=== PATIENT | female | born 1990 | race Caucasian/White ===

== ENCOUNTER 2018-06-17 16:34 | Emergency (ER) | payer SELFPAY ==
[~2018-06-17] VITALS: Ht 157.5 cm; Wt 85.7 kg
--- OUTSIDE RECORDS SUMMARY | 2018-06-17 16:37 | XMS REPORT | CCD ---
Author Author Auto Generated Organization [facility] Address Unknown Phone Unavailable Care Team Providers Care Mammography Tech Name Role Phone Cele Santiago CP Allergies, Adverse Reactions, Alerts Substance Reaction Status NKDA Active Results BEDSIDE GLUCOSE TESTING Most recent to oldest [Reference Range]: 1 Gluc POC Lifscn [65-110 mg/dL] 71 mg/dL 1 (06/04/2011 17:45:00) Comment1 Notify RN/MD *NA* (06/04/2011 17:45:00) 1Interpretive Data: Upper Reportable Limit: 200 mg/dL. BLOOD BANK RESULTS Most recent to oldest [Reference Range]: 1 ABO/Rh A POS *Unknown* (06/04/2011 16:10:00) Antibody Scrn Negative (06/04/2011 16:10:00) CHEMISTRY Most recent to oldest [Reference Range]: 1 U Alcohol [Negative] Negative *NA* (06/04/2011 17:25:00) U Methadone Scr [Negative] Negative *NA* (06/04/2011 17:25:00) U Propoxyph Scr [Negative] Negative *NA* (06/04/2011 17:25:00) U Amph Scr [Negative] Negative *NA* (06/04/2011 17:25:00) U Francisca Scr [Negative] Negative *NA* (06/04/2011 17:25:00) U Benzodia Scr [Negative] Negative *NA* (06/04/2011 17:25:00) U Cocaine Scr [Negative] Negative *NA* (06/04/2011 17:25:00) U Opiate Scr [Negative] Negative *NA* (06/04/2011 17:25:00) U Phencyc Scr [Negative] Negative *NA* (06/04/2011 17:25:00) U Cannab Scr [Negative] Negative *NA* (06/04/2011 17:25:00) UDS Note See Note 2 (06/04/2011 17:25:00) 2Interpretive Data: Drugs reported as positive have not been confirmed by a second method and should be used for medical purposes only. To orderconfirmation, contact laboratory. note: Below are cut-off concentrations for all urine drugs of abuse performed in the laboratory. Some drugs listed in the table may not be included in this panel.Description Cut-off concentration Amphetamine 1000 ng/mLBarbiturates 200 ng/mLBenzodiazepines 300 ng/mLCocaine metabolites 300 ng/mLOpiates 300 ng/mLPhencyclidine 25 ng/mLPropoxyphene 300 ng/mLMarijuana metabolites 50 ng/mLMethadone 300 ng/mLUrine alcohol 20 mg/dL HEMATOLOGY Most recent to oldest [Reference Range]: 1 WBC [3.7-10.4 K/CMM] 9.9 K/CMM (06/04/2011 17:30:00) RBC [4.20-5.40 M/CMM] 3.95 M/CMM *LOW* (06/04/2011 17:30:00) Hgb [12.0-16.0 g/dL] 9.6 g/dL *LOW* (06/04/2011:30:00) Hct [36.0-48.0 %] 29.9 % *LOW* (06/04/2011 17:30:00) MCV [81.0-99.0 fL] 75.6 fL *LOW* (06/04/2011 17:30:00) MCH [27.0-31.0 pg] 24.4 pg *LOW* (06/04/2011:30:00) MCHC [32.0-36.0 g/dL] 32.3 g/dL (06/04/2011 17:30:00) RDW [11.5-14.5 %] 17.0 % *HI* (06/04/2011 17:30:00) Platelet [133-450 K/CMM] 219 K/CMM (06/04/2011 17:30:00) MPV [7.4-10.4 fL] 9.3 fL (06/04/2011 17:30:00) Segs [45.0-75.0 %] 75.9 % *HI* (06/04/2011 17:30:00) Lymphocytes [20.0-40.0 %] 18.9 % *LOW* (06/04/2011 17:30:00) Monocytes [2.0-12.0 %] 4.4 % (06/04/2011 17:30:00) Eosinophils [0.0-4.0 %] 0.2 % (06/04/2011 17:30:00) Basophils [0.0-1.0 %] 0.6 % (06/04/2011 17:30:00) Segs-Bands # [1.5-8.1 K/CMM] 7.5 K/CMM (06/04/2011 17:30:00) Lymphocytes # [1.0-5.5 K/CMM] 1.9 K/CMM (06/04/2011 17:30:00) Monocytes # [0.0-0.8 K/CMM] 0.4 K/CMM (06/04/2011 17:30:00) Eosinophils # [0.0-0.5 K/CMM] 0.0 K/CMM (06/04/2011 17:30:00) Basophils # [0.0-0.2 K/CMM] 0.1 K/CMM (06/04/2011 17:30:00) Microcyte [None Seen] 1+ *ABN* (06/04/2011 17:30:00) IMMUNOLOGY Most recent to oldest [Reference Range]: 1 RPR [Non Reactive] Non Reactive (06/04/2011 17:30:00) HIV 1/2 Ab (LD) [Negative] Negative *NA* (06/04/2011 17:30:00) Rubella IgG 27.2 IU/mL 3 *NA* (06/04/2011 17:30:00) Source Chlam endocervix *NA* (06/04/2011 17:30:00) Chlam PCR [Negative] Positive *ABN* (06/04/2011 17:30:00) Source Dayne Endocervix *NA* (06/04/2011 17:30:00) Gonorrhea PCR [Negative] Negative (06/04/2011 17:30:00) Hep Bs Ag [Negative] Negative *NA* (06/04/2011 17:30:00) 3Interpretive Data: Reference Range: Immune >=10 IU/mL Microbiology Reports PROCEDURE:Culture: Genital Strep Screen STATUS: In Progress BODY SITE: Vagina COLLECTED DATE/TIME: 06/04/2011 18:00:00 SOURCE: Vaginal/Rectal FREE TEXT SOURCE: [facility] SWAB PRELIMINARY REPORTS Preliminary Report Culture In Progress
--- OUTSIDE RECORDS SUMMARY | 2018-06-17 16:37 | XMS REPORT | CCD ---
Author Author Auto Generated Organization [facility] Address Unknown Phone Unavailable Care Team Providers Care Transmission Mechanic Name Role Phone Agusto Haines CP Allergies, Adverse Reactions, Alerts Substance Reaction Status NKDA Active Vital Signs Most recent to oldest [Reference Range]: 1 Height 157.48 cm (04/23/2011 00:54:00) Weight 64.091 kg (04/23/2011 00:54:00)
--- OUTSIDE RECORDS SUMMARY | 2018-06-17 16:37 | XMS REPORT ---
Author Author [facility] Address Unknown Phone Unavailable Care Team Providers Care Hydrologic Engineer Name Role Phone Unavailable Unavailable Payers Payer Name Policy Type Policy Number Effective Date Expiration Date Problems This patient has no known problems. Allergies, Adverse Reactions, Alerts Allergy Name Allergy Type Status Severity Reaction(s) Onset Date Inactive Date Treating Clinician Comments No Known Allergies DA Active U 2018-01-02 00:00:00 No Known Allergies DA Active U 2017-01-01 00:00:00 Medications This patient has no known medications.
--- OUTSIDE RECORDS SUMMARY | 2018-06-17 16:37 | XMS REPORT | Summary of Care ---
Author Author [facility] Organization [facility] Address Unknown Phone Unavailable Encounter MINI Cano(JEANNINE) [id number] Date(s): 08/06/16 - 08/06/16 [facility] [address] [place] [address]- Discharge Diagnosis: Chest wall pain Discharge Disposition: Home or Self Care Attending Physician: Suman Cortes MD Vital Signs Most recent to 1 2 oldest [Reference Range]: Temperature Oral 98.4 DegF 98.6 DegF [96.4-99.1 DegF] (08/06/16 8:45 AM) (08/06/16 6:30 AM) Blood Pressure 120/81 mmHg 121/78 mmHg [90-140/60-90 mmHg] (08/06/16 8:45 AM) (08/06/16 6:30 AM) Respiratory Rate 16 BRMIN 20 BRMIN [14-20 BRMIN] (08/06/16 8:45 AM) (08/06/16 6:30 AM) Peripheral Pulse 72 bpm 66 bpm Rate [60-100 bpm] (08/06/16 8:45 AM) (08/06/16 6:30 AM) Weight 80 kg (08/06/16 6:30 AM) Problem List No data available for this section Allergies, Adverse Reactions, Alerts Substance Reaction Severity Status NKDA Active Medications ketOROLAC 30 mg/mL injectable solution 60 mg, Route: IM, ONCE, Dosing Weight 80, kg, Start date: 08/06/16 8:16:00 CDT, Stop date: 08/06/16 8:16:00 CDT Start Date: 08/06/16 Stop Date: 08/06/16 Status: Completed Motrin 800 mg oral tablet 800 mg=1 tab, PO, Q8H, PRN Pain, Take with food, X 14 day, # 42 tab, 0 Refill(s) Start Date: 08/06/16 Stop Date: 08/20/16 Status: Ordered Results No data available for this section Immunizations No data available for this section Procedures No data available for this section Social History Social History Type Response Smoking Status Never smoker; Exposure to Tobacco Smoke None; Cigarette Smoking Last 365 Days No; Reg Smoking Cessation Counseling No Assessment and Plan No data available for this section
--- OUTSIDE RECORDS SUMMARY | 2018-06-17 16:37 | XMS REPORT | CCD ---
Author Author Auto Generated Organization [facility] Address Unknown Phone Unavailable Care Team Providers Care Scaffold Erector Name Role Phone PCP, None CP Unavailable ChartServer, Login CP Unavailable Malathi Multani CP Kayla Burns CP Wanda Hernandez CP [phone] Allergies, Adverse Reactions, Alerts Substance Reaction Status NKDA ?? Active Vital Signs Most recent to oldest [Reference Range]: 1 Height 157.48 cm (02/24/2011 07:37:00) ?? Weight 62.727 kg (02/24/2011 07:37:00) ??
--- OUTSIDE RECORDS SUMMARY | 2018-06-17 16:37 | XMS REPORT | Summary of Care ---
Author Author [facility] Organization [facility] Address Unknown Phone Unavailable Encounter HQ Jerome(FIN) [id number] Date(s): 10/11/17 - 10/11/17 [facility] [address] [place] [address]- Encounter Diagnosis Epigastric pain (Discharge Diagnosis) - 10/11/17 Discharge Disposition: Home or Self Care Attending Physician: Roslyn Laura MD Vital Signs Most recent to 1 2 oldest [Reference Range]: Height 157.48 cm (10/11/17 2:00 PM) Temperature Oral 98.3 DegF 98.7 DegF [96.4-99.1 DegF] (10/11/17 4:22 PM) (10/11/17 2:00 PM) Blood Pressure 104/68 mmHg 152/86 mmHg [90-140/60-90 mmHg] (10/11/17 4:22 PM) *HI* (10/11/17 2:00 PM) Respiratory Rate 20 BRMIN 18 BRMIN [14-20 BRMIN] (10/11/17 4:22 PM) (10/11/17 2:00 PM) Peripheral Pulse 71 bpm 83 bpm Rate [60-100 bpm] (10/11/17 4:22 PM) (10/11/17 2:00 PM) Weight 78.636 kg (10/11/17 2:00 PM) Body Mass Index 31.71 m2 (10/11/17 2:00 PM) Problem List No data available for this section Allergies, Adverse Reactions, Alerts Substance Reaction Severity Status NKDA Active Medications GI cocktail 30 mL, Route: PO, Dosing Weight 78.636, kg, ONCE, STAT, Start date: 10/11/17 15: 59:00 CDT, Stop date: 10/11/17 15:59:00 CDT Start Date: 10/11/17 Stop Date: 10/11/17 Status: Completed Pepcid 20 mg, Route: PO, ONCE, Dosing Weight 78.636, kg, Priority: STAT, Start date: 15:59:00 CDT, Stop date: 10/11/17 15:59:00 CDT Start Date: 10/11/17 Stop Date: 10/11/17 Status: Completed Pepcid 20 mg oral tablet 20 mg=1 tab, PO, BID, # 14 tab, 0 Refill(s) Start Date: 10/11/17 Stop Date: 10/18/17 Status: Ordered Results ELECTROLYTES Most recent to 1 oldest [Reference Range]: Sodium Lvl [135-145 139 mEq/L mEq/L] (10/11/17 2:11 PM) Potassium Lvl 4.0 mEq/L [3.5-5.1 mEq/L] (10/11/17 2:11 PM) Chloride Lvl [95-109 105 mEq/L mEq/L] (10/11/17 2:11 PM) CO2 [24-32 mEq/L] 26 mEq/L (10/11/17 2:11 PM) AGAP [10.0-20.0 12.0 mEq/L mEq/L] (10/11/17 2:11 PM) CHEM PANEL Most recent to 1 oldest [Reference Range]: Creatinine Lvl 0.97 mg/dL [0.50-1.40 mg/dL] (10/11/17 2:11 PM) eGFR 81 mL/min/1.73m2 1 *NA* (10/11/17 2:11 PM) BUN [7-22 mg/dL] 14 mg/dL (10/11/17 2:11 PM) B/C Ratio [6-25] 14 (10/11/17 2:11 PM) Glucose Lvl [70-99 94 mg/dL mg/dL] (10/11/17 2:11 PM) Total Protein 8.0 g/dL [6.4-8.4 g/dL] (10/11/17 2:11 PM) Albumin Lvl [3.5-5.0 3.8 g/dL g/dL] (10/11/17 2:11 PM) Globulin [2.7-4.2 4.2 g/dL g/dL] (10/11/17 2:11 PM) A/G Ratio [0.7-1.6] 0.9 (10/11/17 2:11 PM) Calcium Lvl 8.7 mg/dL [8.5-10.5 mg/dL] (10/11/17 2:11 PM) ALT [0-65 unit/L] 58 unit/L (10/11/17 2:11 PM) AST [0-37 unit/L] 34 unit/L (10/11/17 2:11 PM) Alk Phos [39-136 81 unit/L unit/L] (10/11/17 2:11 PM) Bili Total [0.2-1.3 0.2 mg/dL mg/dL] (10/11/17 2:11 PM) Lipase Lvl [73-393 134 unit/L unit/L] (10/11/17 2:11 PM) 1Result Comment: The eGFR is calculated using the CKD-EPI formula. In most young, healthy individuals the eGFR will be >90 mL/min/1.73m2. The eGFR declines with age. An eGFR of 60-89 may be normal in some populations, particularly the elderly, for whom the CKD-EPI formula has not been extensively validated. Use of the eGFR is not recommended in the following populations: Individuals with unstable creatinine concentrations, including patients and those with serious co-morbid conditions. Patients with extremes in muscle mass or diet. The data above are obtained from the National Kidney Disease Education Program ( NKDEP) which additionally recommends that when the eGFR is used in patients with extremes of body mass index for purposes of drug dosing, the eGFR should be mul tiplied by the estimated BMI. ENDOCRINOLOGY Most recent to 1 oldest [Reference Range]: S Preg [Negative] Negative *NA* (10/11/17 2:11 PM) URINE AND STOOL Most recent to 1 oldest [Reference Range]: UA Turbidity [Clear] Slight *ABN* (10/11/17 2:11 PM) UA Color [Yellow] Yellow *NA* (10/11/17 2:11 PM) UA pH [5.0-8.0] 7.0 (10/11/17 2:11 PM) UA Spec Grav 1.020 [<=1.030] (10/11/17 2:11 PM) UA Glucose [Negative Negative mg/dL mg/dL] *NA* (10/11/17 2:11 PM) UA Blood [Negative] Negative (10/11/17 2:11 PM) UA Ketones Negative *NA* (10/11/17 2:11 PM) UA Protein [Negative Negative mg/dL mg/dL] (10/11/17 2:11 PM) UA Urobilinogen 2.0 mg/dL [0.1-1.0 mg/dL] *HI* (10/11/17 2:11 PM) UA Bili [Negative] Negative *NA* (10/11/17 2:11 PM) UA Leuk Est Negative [Negative] (10/11/17 2:11 PM) UA Nitrite Negative [Negative] (10/11/17 2:11 PM) UA WBC [0-5 /HPF] 4 /HPF (10/11/17 2:11 PM) UA RBC [0-2 /HPF] 1 /HPF (10/11/17 2:11 PM) UA Bacteria [None Occasional /HPF Seen /HPF] *NA* (10/11/17 2:11 PM) UA Sq Epi [Few /LPF] Occasional /LPF *NA* (10/11/17 2:11 PM) UA Mucus [None Seen Few /LPF /LPF] *NA* (10/11/17 2:11 PM) HEMATOLOGY Most recent to 1 oldest [Reference Range]: WBC [3.7-10.4 K/CMM] 6.1 K/CMM (10/11/17 2:11 PM) RBC [4.20-5.40 4.66 M/CMM M/CMM] (10/11/17 2:11 PM) Hgb [12.0-16.0 g/dL] 14.0 g/dL (10/11/17 2:11 PM) Hct [36.0-48.0 %] 41.2 % (10/11/17 2:11 PM) MCV [80.0-98.0 fL] 88.5 fL (10/11/17 2:11 PM) MCH [27.0-31.0 pg] 30.1 pg (10/11/17 2:11 PM) MCHC [32.0-36.0 33.9 g/dL g/dL] (10/11/17 2:11 PM) RDW [11.5-14.5 %] 13.5 % (10/11/17 2:11 PM) MPV [7.4-10.4 fL] 8.4 fL (10/11/17 2:11 PM) Platelet [133-450 264 K/CMM K/CMM] (10/11/17 2:11 PM) Segs [45.0-75.0 %] 58.6 % (10/11/17 2:11 PM) Lymphocytes 32.4 % [20.0-40.0 %] (10/11/17 2:11 PM) Monocytes [2.0-12.0 7.5 % %] (10/11/17 2:11 PM) Eosinophils [0.0-4.0 0.8 % %] (10/11/17 2:11 PM) Basophils [0.0-1.0 0.7 % %] (10/11/17 2:11 PM) Segs-Bands # 3.6 K/CMM [1.5-8.1 K/CMM] (10/11/17 2:11 PM) Lymphocytes # 2.0 K/CMM [1.0-5.5 K/CMM] (10/11/17 2:11 PM) Monocytes # [0.0-0.8 0.5 K/CMM K/CMM] (10/11/17 2:11 PM) Immunizations No data available for this section Procedures No data available for this section Social History Social History Type Response Smoking Status Never smoker; Exposure to Tobacco Smoke None; Cigarette Smoking Last 365 Days No; Reg Smoking Cessation Counseling No entered on: 10/11/17 Assessment and Plan No data available for this section
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
[2018-06-17 18:39] LABS: CLARITY,URINE SL CLOUDY (CLEAR); COLOR,URINE STRAW (YELLOW); LEUKOCYTE ESTERASE ,URINE TRACE (NEGATIVE); NITRITE,URINE NEGATIVE (NEGATIVE); PROTEIN,URINE DIPSTICK 2+ (NEGATIVE)
[2018-06-17 18:40] LABS: BILIRUBIN,URINE NEGATIVE (NEGATIVE); KETONES,URINE NEGATIVE (NEGATIVE); URINE UROBILINOGEN 0.2 mg/dL (0.2 - 1)
[2018-06-17 18:50] LABS: WBC,URINE (MAN) 0-5 /HPF (0-5)
[2018-06-17 18:51] LABS: RBC,URINE 21-50 /HPF (0-5)
--- NOTE | 2018-06-17 19:40 | Diagnostic Imaging Report ---
Frontal view of the chest - 2 images HISTORY: Chest pain COMPARISON: None available. DISCUSSION: Portable technique, limits sensitivity of the exam. Tubes/Lines: None Lungs and pleura: Low lung volumes result in bibasilar vascular crowding, accentuation of the pulmonary interstitial markings, central pulmonary vasculature, and the cardiac silhouette. Allowing for these limitations, the findings are as follows: No evidence of a consolidative pneumonia or pulmonary alveolar edema. No definite pleural effusion or pneumothorax is identified. Heart and mediastinum: The cardiomediastinal silhouette appears unremarkable. Bones and soft tissues: Appear unremarkable, given this limited exam. IMPRESSION: No acute radiographic abnormality. Signed by: Dr. Jose Posey D.O., M.M.M. on 06/17/2018 7:36 PM
[2018-06-17 20:19] LABS: BASOPHILS % 0.2 % (0.0-1.0); EOSINOPHILS % 0.2 % (0.0-6.0); HEMATOCRIT 43.2 % (34.2-44.1); HEMOGLOBIN 14.5 g/dL (12.0-16.0); LYMPHOCYTES # (AUTO) 1.8 (1.0-3.2); LYMPHOCYTES % 14.6 % (18.0-39.1); MEAN CORPUSCULAR HEMOGLOBIN 29.6 pg (28-32); MEAN CORPUSCULAR HGB CONC 33.6 g/dL (31-35); MEAN CORPUSCULAR VOLUME 88.2 fL (81-99); MONOCYTES # (AUTO) 0.6 (0.2-0.8); MONOCYTES % 4.7 % (4.4-11.3); NEUTROPHILS # (AUTO) 9.9 (2.1-6.9); NEUTROPHILS % 80.1 % (38.7-80.0); PLATELET COUNT 287 x10e3/uL (140-360); RED CELL DISTRIBUTION WIDTH 12.5 % (11.7-14.4)
[2018-06-17 20:41] LABS: ALANINE AMINOTRANSFERASE 28 IU/L (0-55); ALBUMIN 3.7 g/dL (3.5-5.0); ALBUMIN/GLOBULIN RATIO 0.9 (0.8-2.0); ALKALINE PHOSPHATASE 84 IU/L (40-150); ANION GAP 13.8 mmol/L (8-16); BLOOD UREA NITROGEN 7 mg/dL (7-26); BUN/CREATININE RATIO 9 (6-25); CALCIUM 9.3 mg/dL (8.4-10.2); CARBON DIOXIDE 23 mmol/L (22-29); CHLORIDE 105 mmol/L (98-107); CREATINE KINASE 136 IU/L (29-168); CREATININE, SERUM 0.74 mg/dL (0.57-1.11); EST GLOMERULAR FILTRATION RATE > 60 ML/MIN (60-); GLUCOSE 86 mg/dL (74-118); POTASSIUM 3.8 mmol/L (3.5-5.1); SODIUM 138 mmol/L (136-145)
[2018-06-17 20:43] LABS: AMYLASE 76 U/L (25-125); LIPASE 19 U/L (8-78)
[2018-06-17 22:30] VITALS: BP 123/83
== END 2018-06-17 22:36 | disposition home or self-care (01) ==
LOC: ER 16:34
DX: M54.2 Cervicalgia (principal); M54.6 Pain in thoracic spine; X50.0XXA Overexertion from strenuous movement or load, initial encounter
CPT/HCPCS: 36415; 71045; 80053; 81001; 82150; 82550; 82553; 83690; 84484; 85025; 93005; 99284

== ENCOUNTER 2018-08-04 05:28 | Emergency (ER) | payer SELFPAY ==
[~2018-08-04] VITALS: Ht 157.5 cm; Wt 85.7 kg
--- OUTSIDE RECORDS SUMMARY | 2018-08-04 05:31 | XMS REPORT | Continuity of Care Document ---
Author Author [facility] Interface Address Unknown Phone Unavailable Problems Problem Status Onset Date Classification Date Reported Comments Source Threatened 01/03/2018 07/19/2018 [facility] Threatened miscarriage 12/30/2017 07/19/2018 [facility] LOWER ABDOMINAL PAIN AND SOME VAGINAL BL Active 12/30/2017 [facility] Epigastric pain 10/11/2017 10/14/2017 [facility] BACK PAIN Active 10/11/2017 [facility] BACK PAIN, CHEST Active 08/10/2017 [facility] Discharge Diagnosis: Chest wall pain 08/06/2016 08/09/2016 [facility] CHEST PAIN Active 08/06/2016 [facility] COUGH Active 08/06/2016 [facility] LABOR Active 06/04/2011 [facility] UPPER ABDOMINAL PAIN. Active 04/23/2011 [facility] UPPER ABDOMINAL PAIN Active 04/23/2011 [facility] ABDOMINAL PAIN Active 02/24/2011 [facility] 16 WEEKS -FELL Active 01/24/2011 [facility] Less than 8 weeks gestation of 07/19/2018 [facility] Medications Medication Details Route Status Patient Instructions Ordering Provider Order Date Source Acetaminophen 975 mg, Route: PO, Drug form: TAB, ONCE, Dosing Weight 84.682, kg, Priority: STAT, Start date: 12/30/17 11:22:00 CDT, Stop date: 12/30/17 11:22:00 CDT Inactive 12/30/2017 [facility] Sodium Chloride 0.9% (Bolus) IV 1,000 mL, Infuse Over: 1 hr, Route: IV, ONCE, Priority: STAT, Dosing Weight 84.682 kg, Start date: 12/30/17 11:03:00 CDT, Stop date: 12/30/17 11:03:00 CDT Inactive 12/30/2017 [facility] Saline Flush 0.9% 10 mL, Route: IVP, Drug Form: INJ, Dosing Weight 84.682, kg, PRN, PRN Line Flush, Start date: 12/30/17 10:42:00 CDT, Duration: 30 day, Stop date: 01/29/18 10:41:00 CDTNotes: Same as: BD Posiflush Sterile Inactive 12/30/2017 [facility] Famotidine 20 MG Oral Tablet [Pepcid] 20 mg=1 tab, PO, BID, # 14 tab, 0 Refill(s) Active 10/11/2017 [facility] GI cocktail 30 mL, Route: PO, Dosing Weight 78.636, kg, ONCE, STAT, Start date: 10/11/17 15:59:00 CDT, Stop date: 10/11/17 15:59:00 CDT Inactive 10/11/2017 [facility] Pepcid 20 mg, Route: PO, ONCE, Dosing Weight 78.636, kg, Priority: STAT, Start date: 10/11/17 15:59:00 CDT, Stop date: 10/11/17 15:59:00 CDT Inactive 10/11/2017 [facility] ketOROLAC 30 mg/mL injectable solution 60 mg, Route: IM, ONCE, Dosing Weight 80, kg, Start date: 08/06/16 8:16:00 CDT, Stop date: 08/06/16 8:16:00 CDT Inactive 08/06/2016 [facility] Motrin 800 mg oral tablet 800 mg=1 tab, PO, Q8H, PRN Pain, Take with food, X 14 day, # 42 tab, 0 Refill(s) Active 08/06/2016 [facility] Allergies, Adverse Reactions, Alerts Substance Category Reaction Severity Reaction type Status Date Reported Comments Source Immunizations Immunization Date Given Site Status Last Updated Comments Source Results Order Name Results Value Reference Range Date Interpretation Comments Source BLOOD BANK RESULTS ABO/Rh A POS 12/30/2017 [facility] CHEM PANEL Globulin 4.2 g/dL 2.7 - 4.2 12/30/2017 [facility] CHEM PANEL AST 19 unit/L 0 - 37 12/30/2017 [facility] CHEM PANEL Bili Total 0.3 mg/dL 0.2 - 1.3 12/30/2017 [facility] CHEM PANEL A/G Ratio 0.8 0.7 - 1.6 12/30/2017 [facility] CHEM PANEL ALT 32 unit/L 0 - 65 12/30/2017 [facility] CHEM PANEL Total Protein 7.7 g/dL 6.4 - 8.4 12/30/2017 [facility] CHEM PANEL Albumin Lvl 3.5 g/dL 3.5 - 5.0 12/30/2017 [facility] CHEM PANEL Bili Indirect Unable to Calculate 0.0 - 1.0 12/30/2017 [facility] CHEM PANEL Alk Phos 68 unit/L 39 - 136 12/30/2017 [facility] CHEM PANEL Bili Direct null 0.0 - 0.3 12/30/2017 [facility] CHEM PANEL eGFR 122 mL/min/1.73m2 12/30/2017 Result Comment: The eGFR is calculated using [...] should be multiplied by the estimated BMI. [facility] CHEM PANEL Calcium Lvl 8.6 mg/dL 8.5 - 10.5 12/30/2017 [facility] CHEM PANEL CO2 27 meq/L 24 - 32 12/30/2017 [facility] Creatinine Lvl 0.66 mg/dL 0.50 - 1.40 12/30/2017 [facility] CHEM PANEL BUN 8 mg/dL 7 - 22 12/30/2017 [facility] CHEM PANEL Glucose Lvl 94 mg/dL 70 - 99 12/30/2017 [facility] CHEM PANEL Chloride Lvl 106 meq/L 95 - 109 12/30/2017 [facility] CHEM PANEL Potassium Lvl 3.9 meq/L 3.5 - 5.1 12/30/2017 [facility] CHEM PANEL Sodium Lvl 140 meq/L 135 - 145 12/30/2017 [facility] CHEM PANEL AGAP 10.9 meq/L 10.0 - 20.0 12/30/2017 [facility] [place]INOLOGY [place] 13726 mIU/mL 12/30/2017 [facility] HEMATOLOGY MCV 89.9 fL 80.0 - 98.0 12/30/2017 [facility] HEMATOLOGY RDW 13.5 % 11.5 - 14.5 12/30/2017 [facility] HEMATOLOGY Platelet 235 K/CMM 133 - 450 12/30/2017 [facility] HEMATOLOGY MCHC 34.1 g/dL 32.0 - 36.0 12/30/2017 [facility] HEMATOLOGY MCH 30.7 pg 27.0 - 31.0 12/30/2017 [facility] HEMATOLOGY MPV 7.9 fL 7.4 - 10.4 12/30/2017 [facility] HEMATOLOGY WBC 5.2 K/CMM 3.7 - 10.4 12/30/2017 [facility] HEMATOLOGY RBC 4.56 M/CMM 4.20 - 5.40 12/30/2017 [facility] HEMATOLOGY Hgb 14.0 g/dL 12.0 - 16.0 12/30/2017 [facility] HEMATOLOGY Hct 41.0 % 36.0 - 48.0 12/30/2017 [facility] HEMATOLOGY Basophils 0.5 % 0.0 - 1.0 12/30/2017 [facility] HEMATOLOGY Neutrophils # 3.0 K/CMM 1.5 - 8.1 12/30/2017 [facility] HEMATOLOGY Eosinophils 1.7 % 0.0 - 4.0 12/30/2017 [facility] HEMATOLOGY Lymphocytes # 1.7 K/CMM 1.0 - 5.5 12/30/2017 [facility] HEMATOLOGY Monocytes # 0.4 K/CMM 0.0 - 0.8 12/30/2017 [facility] HEMATOLOGY Eosinophils # 0.1 K/CMM 0.0 - 0.5 12/30/2017 [facility] HEMATOLOGY Lymphocytes 33.0 % 20.0 - 40.0 12/30/2017 [facility] HEMATOLOGY Monocytes 7.0 % 2.0 - 12.0 12/30/2017 [facility] HEMATOLOGY Segs 57.8 % 45.0 - 75.0 12/30/2017 [facility] URINE AND STOOL UA Ketones Negative 12/30/2017 [facility] URINE AND STOOL UA Urobilinogen <=1.0 mg/dL 0.1 - 1.0 12/30/2017 [facility] URINE AND STOOL UA Mucus Few /LPF None Seen /LPF 12/30/2017 [facility] URINE AND STOOL UA WBC 1 /HPF 0 - 5 12/30/2017 [facility] URINE AND STOOL UA Bacteria Occasional /HPF None Seen /HPF 12/30/2017 [facility] URINE AND STOOL UA RBC null 0 - 2 12/30/2017 [facility] URINE AND STOOL UA Turbidity Clear (12/30/17 10:58 AM) Clear 12/30/2017 [facility] URINE AND STOOL UA Spec Grav 1.013 <=1.030 12/30/2017 [facility] URINE AND STOOL UA Color Light Yellow *NA* (12/30/17 10:58 AM) Yellow 12/30/2017 [facility] URINE AND STOOL UA Leuk Est Negative (12/30/17 10:58 AM) Negative 12/30/2017 [facility] URINE AND STOOL UA Sq Epi Occasional /LPF Few /LPF 12/30/2017 [facility] URINE AND STOOL UA Nitrite Negative (12/30/17 10:58 AM) Negative 12/30/2017 [facility] URINE AND STOOL UA Bili Negative *NA* (12/30/17 10:58 AM) Negative 12/30/2017 [facility] URINE AND STOOL UA Blood Negative (12/30/17 10:58 AM) Negative 12/30/2017 [facility] URINE AND STOOL UA Glucose Negative mg/dL Negative mg/dL 12/30/2017 [facility] URINE AND STOOL UA pH 7.0 5.0 - 8.0 12/30/2017 [facility] URINE AND STOOL UA Protein Negative mg/dL Negative mg/dL 12/30/2017 [facility] Preg < 14wks sing gest w transvag/Dop [...] not identified. 2. Large subchorionic hemorrhage. SL: [id number] 12/30/2017 - - Read by: Kaden Acevedo MD Dictated Date/time: 12/30/17 12:26 Electronically Signed by: Kaden Acevedo MD 12/30/17 12:33 FINAL REPORT [facility] CHEM PANEL Lipase Lvl 134 unit/L 73 - 393 10/11/2017 [facility] CHEM PANEL eGFR 81 mL/min/1.73m2 10/11/2017 Result [...] should be multiplied by the estimated BMI. [facility] CHEM PANEL Sodium Lvl 139 meq/L 135 - 145 10/11/2017 [facility] CHEM PANEL Creatinine Lvl 0.97 mg/dL 0.50 - 1.40 10/11/2017 [facility] CHEM PANEL BUN 14 mg/dL 7 - 22 10/11/2017 [facility] CHEM PANEL Glucose Lvl 94 mg/dL 70 - 99 10/11/2017 [facility] CHEM PANEL CO2 26 meq/L 24 - 32 10/11/2017 [facility] CHEM PANEL Bili Total 0.2 mg/dL 0.2 - 1.3 10/11/2017 [facility] CHEM PANEL Alk Phos 81 unit/L 39 - 136 10/11/2017 [facility] CHEM PANEL ALT 58 unit/L 0 - 65 10/11/2017 [facility] CHEM PANEL Albumin Lvl 3.8 g/dL 3.5 - 5.0 10/11/2017 [facility] CHEM PANEL AST 34 unit/L 0 - 37 10/11/2017 [facility] CHEM PANEL Total Protein 8.0 g/dL 6.4 - 8.4 10/11/2017 [facility] CHEM PANEL Calcium Lvl 8.7 mg/dL 8.5 - 10.5 10/11/2017 [facility] CHEM PANEL Chloride Lvl 105 meq/L 95 - 109 10/11/2017 [facility] CHEM PANEL Potassium Lvl 4.0 meq/L 3.5 - 5.1 10/11/2017 [facility] CHEM PANEL A/G Ratio 0.9 0.7 - 1.6 10/11/2017 [facility] CHEM PANEL Globulin 4.2 g/dL 2.7 - 4.2 10/11/2017 [facility] CHEM PANEL B/C Ratio 14 6 - 25 10/11/2017 [facility] CHEM PANEL AGAP 12.0 meq/L 10.0 - 20.0 10/11/2017 [facility] ENDOCRINOLOGY S Preg Negative *NA* (10/11/17 2:11 PM) Negative 10/11/2017 [facility] HEMATOLOGY Lymphocytes # 2.0 K/CMM 1.0 - 5.5 10/11/2017 [facility] HEMATOLOGY Monocytes # 0.5 K/CMM 0.0 - 0.8 10/11/2017 [facility] HEMATOLOGY Eosinophils 0.8 % 0.0 - 4.0 10/11/2017 [facility] HEMATOLOGY Lymphocytes 32.4 % 20.0 - 40.0 10/11/2017 [facility] HEMATOLOGY Segs-Bands # 3.6 K/CMM 1.5 - 8.1 10/11/2017 [facility] HEMATOLOGY Basophils 0.7 % 0.0 - 1.0 10/11/2017 [facility] HEMATOLOGY Monocytes 7.5 % 2.0 - 12.0 10/11/2017 [facility] HEMATOLOGY Segs 58.6 % 45.0 - 75.0 10/11/2017 [facility] HEMATOLOGY Platelet 264 K/CMM 133 - 450 10/11/2017 [facility] HEMATOLOGY MPV 8.4 fL 7.4 - 10.4 10/11/2017 [facility] HEMATOLOGY MCH 30.1 pg 27.0 - 31.0 10/11/2017 [facility] HEMATOLOGY MCV 88.5 fL 80.0 - 98.0 10/11/2017 [facility] HEMATOLOGY RDW 13.5 % 11.5 - 14.5 10/11/2017 [facility] HEMATOLOGY MCHC 33.9 g/dL 32.0 - 36.0 10/11/2017 [facility] HEMATOLOGY WBC 6.1 K/CMM 3.7 - 10.4 10/11/2017 [facility] HEMATOLOGY RBC 4.66 M/CMM 4.20 - 5.40 10/11/2017 [facility] HEMATOLOGY Hct 41.2 % 36.0 - 48.0 10/11/2017 [facility] HEMATOLOGY Hgb 14.0 g/dL 12.0 - 16.0 10/11/2017 [facility] URINE AND STOOL UA Ketones Negative 10/11/2017 [facility] URINE AND STOOL UA RBC 1 /HPF 0 - 2 10/11/2017 [facility] URINE AND STOOL UA WBC 4 /HPF 0 - 5 10/11/2017 [facility] URINE AND STOOL UA Sq Epi Occasional /LPF Few /LPF 10/11/2017 [facility] URINE AND STOOL UA Leuk Est Negative (10/11/17 2:11 PM) Negative 10/11/2017 [facility] URINE AND STOOL UA Glucose Negative mg/dL Negative mg/dL 10/11/2017 [facility] URINE AND STOOL UA Bacteria Occasional /HPF None Seen /HPF 10/11/2017 [facility] URINE AND STOOL UA Mucus Few /LPF None Seen /LPF 10/11/2017 [facility] URINE AND STOOL UA Nitrite Negative (10/11/17 2:11 PM) Negative 10/11/2017 [facility] URINE AND STOOL UA Urobilinogen 2.0 mg/dL 0.1 - 1.0 10/11/2017 [facility] URINE AND STOOL UA Blood Negative (10/11/17 2:11 PM) Negative 10/11/2017 [facility] URINE AND STOOL UA Bili Negative *NA* (10/11/17 2:11 PM) Negative 10/11/2017 [facility] URINE AND STOOL UA Protein Negative mg/dL Negative mg/dL 10/11/2017 [facility] URINE AND STOOL UA Spec Grav 1.020 <=1.030 10/11/2017 [facility] URINE AND STOOL UA pH 7.0 5.0 - 8.0 10/11/2017 [facility] URINE AND STOOL UA Turbidity Slight *ABN* (10/11/17 2:11 PM) Clear 10/11/2017 [facility] URINE AND STOOL UA Color Yellow *NA* (10/11/17 2:11 PM) Yellow 10/11/2017 [facility] Gallbladder US Gallbladder US Exam: Gallbladder Ultrasound [...] Jacobo Coles MD 08/10/17 04:11 FINAL REPORT [facility] Chest 1view DX Chest 1view DX Chest [...] No acute abnormality of the chest. SL: [id number] 08/06/2016 - - Read by: Netta Whiting MD Dictated Date/time: 08/06/16 09:27 Electronically Signed by: Netta Whiting MD 08/06/16 09:27 FINAL REPORT [facility] Microbiology Culture: Genital Strep Screen 06/05/2011 [facility] BEDSIDE GLUCOSE TESTING Gluc POC Lifscn 71 mg/dL 65 - 110 06/04/2011 Normal 1Interpretive Data: Upper Reportable Limit: 200 mg/dL. [facility] BEDSIDE GLUCOSE TESTING Comment1 Notify RN/MD 06/04/2011 NA [facility] HEMATOLOGY Microcyte 1+ *ABN* (06/04/2011 17:30:00) None Seen 06/04/2011 ABN [facility] HEMATOLOGY Eosinophils # 0.0 K/CMM 0.0 - 0.5 06/04/2011 [facility] HEMATOLOGY Monocytes # 0.4 K/CMM 0.0 - 0.8 06/04/2011 [facility] HEMATOLOGY Basophils # 0.1 K/CMM 0.0 - 0.2 06/04/2011 [facility] HEMATOLOGY Segs 75.9 % 45.0 - 75.0 06/04/2011 [facility] HEMATOLOGY Basophils 0.6 % 0.0 - 1.0 06/04/2011 [facility] HEMATOLOGY Eosinophils 0.2 % 0.0 - 4.0 06/04/2011 [facility] HEMATOLOGY Segs-Bands # 7.5 K/CMM 1.5 - 8.1 06/04/2011 [facility] HEMATOLOGY Lymphocytes # 1.9 K/CMM 1.0 - 5.5 06/04/2011 [facility] HEMATOLOGY Monocytes 4.4 % 2.0 - 12.0 06/04/2011 [facility] HEMATOLOGY Lymphocytes 18.9 % 20.0 - 40.0 06/04/2011 [facility] HEMATOLOGY Platelet 219 K/CMM 133 - 450 06/04/2011 [facility] HEMATOLOGY MPV 9.3 fL 7.4 - 10.4 06/04/2011 [facility] HEMATOLOGY MCV 75.6 fL 81.0 - 99.0 06/04/2011 [facility] HEMATOLOGY Hct 29.9 % 36.0 - 48.0 06/04/2011 [facility] HEMATOLOGY MCHC 32.3 g/dL 32.0 - 36.0 06/04/2011 [facility] HEMATOLOGY MCH 24.4 pg 27.0 - 31.0 06/04/2011 [facility] HEMATOLOGY RDW 17.0 % 11.5 - 14.5 06/04/2011 [facility] HEMATOLOGY Hgb 9.6 g/dL 12.0 - 16.0 06/04/2011 LOW [facility] HEMATOLOGY RBC 3.95 M/CMM 4.20 - 5.40 06/04/2011 LOW [facility] HEMATOLOGY WBC 9.9 K/CMM 3.7 - 10.4 06/04/2011 Normal [facility] IMMUNOLOGY Rubella IgG 27.2 [iU]/mL 06/04/2011 NA 3Interpretive Data: Reference Range: Immune >=10 IU/mL [facility] IMMUNOLOGY Source Chlam endocervix 06/04/2011 NA [facility] IMMUNOLOGY Chlam PCR Positive *ABN* (06/04/2011 17:30:00) Negative 06/04/2011 ABN [facility] IMMUNOLOGY Gonorrhea PCR Negative (06/04/2011 17:30:00) Negative 06/04/2011 Normal [facility] IMMUNOLOGY Source [place] Endocervix 06/04/2011 NA [facility] IMMUNOLOGY Hep Bs Ag Negative *NA* (06/04/2011 17:30:00) Negative 06/04/2011 [facility] IMMUNOLOGY HIV 1/2 Ab (LD) Negative *NA* (06/04/2011 17:30:00) Negative 06/04/2011 NA [facility] IMMUNOLOGY RPR Non Reactive (06/04/2011 17:30:00) Non Reactive 06/04/2011 Normal [facility] CHEMISTRY U Amph Scr Negative *NA* (06/04/2011 17:25:00) Negative 06/04/2011 [facility] CHEMISTRY UDS Note See Note 2 (06/04/2011 [...] 50 ng/mLMethadone 300 ng/mLUrine alcohol 20 mg/dL [facility] CHEMISTRY U Phencyc Scr Negative *NA* (06/04/2011 17:25:00) Negative 06/04/2011 NA [facility] CHEMISTRY U Propoxyph Scr Negative *NA* (06/04/2011 17:25:00) Negative 06/04/2011 NA [facility] CHEMISTRY U Methadone Scr Negative *NA* (06/04/2011 17:25:00) Negative 06/04/2011 NA [facility] CHEMISTRY U Alcohol Negative *NA* (06/04/2011 17:25:00) Negative 06/04/2011 NA [facility] CHEMISTRY U Francisca Scr Negative *NA* (06/04/2011 17:25:00) Negative 06/04/2011 NA [facility] CHEMISTRY U Benzodia Scr Negative *NA* (06/04/2011 17:25:00) Negative 06/04/2011 NA [facility] CHEMISTRY U Opiate Scr Negative *NA* (06/04/2011 17:25:00) Negative 06/04/2011 NA [facility] CHEMISTRY U Cannab Scr Negative *NA* (06/04/2011 17:25:00) Negative 06/04/2011 [facility] CHEMISTRY U Cocaine Scr Negative *NA* (06/04/2011 17:25:00) Negative 06/04/2011 NA [facility] BLOOD BANK RESULTS ABO/Rh A POS 06/04/2011 Unknown [facility] BLOOD BANK RESULTS Antibody Scrn Negative (06/04/2011 16:10:00) 06/04/2011 Normal [facility] URINALYSIS UA Sq Epi Rare /LPF (01/24/2011 20:25:00) ?? >Few 01/25/2011 Normal [facility] URINALYSIS UA WBC 0-2 /HPF (01/24/2011 20:25:00) ?? >None Seen 01/25/2011 Normal [facility] URINALYSIS UA RBC None Seen (01/24/2011 20:25:00) ?? >0 - 2 01/25/2011 Normal [facility] URINALYSIS UA Bacteria None Seen (01/24/2011 20:25:00) ?? >None Seen 01/25/2011 Normal [facility] URINALYSIS UA Mucus None Seen (01/24/2011 20:25:00) ?? >None Seen 01/25/2011 Normal [facility] URINALYSIS Micro? Performed (01/24/2011 20:25:00) ?? 01/25/2011 Normal [facility] URINALYSIS UA Blood Negative (01/24/2011 20:25:00) ?? >Negative 01/25/2011 Normal [facility] URINALYSIS UA Urobilinogen 0.2 EU/dL 0.1 - 1.0 01/25/2011 Normal [facility] URINALYSIS UA Leuk Est Small *ABN* (01/24/2011 20:25:00) ?? >Negative 01/25/2011 ABN [facility] URINALYSIS UA Turbidity Clear (01/24/2011 20:25:00) ?? >Clear 01/25/2011 Normal [facility] URINALYSIS UA Color Yellow *NA* (01/24/2011 20:25:00) ?? >Yellow 01/25/2011 NA [facility] URINALYSIS UA Bili Negative *NA* (01/24/2011 20:25:00) ?? >Negative 01/25/2011 NA [facility] URINALYSIS UA Nitrite Negative (01/24/2011 20:25:00) ?? >Negative 01/25/2011 Normal [facility] URINALYSIS UA pH 6.5 5.0 - 8.0 01/25/2011 Normal [facility] URINALYSIS UA Spec Grav 1.01 <<=1.030 01/25/2011 Normal [facility] URINALYSIS UA Glucose Negative (01/24/2011 20:25:00) ?? >Negative 01/25/2011 Normal [facility] URINALYSIS UA Protein Negative (01/24/2011 20:25:00) ?? >Negative 01/25/2011 Normal [facility] URINALYSIS UA Ketones Negative *NA* (01/24/2011 20:25:00) ?? >Negative 01/25/2011 NA [facility] Vital Signs Vital Sign Value Date Comments Source Heart Rate 72 12/30/2017 [facility] Respitory Rate 20 12/30/2017 [facility] Temperature Oral (F) 98 F 12/30/2017 [facility] Systolic (mm Hg) 117 12/30/2017 [facility] Diastolic (mm Hg) 68 12/30/2017 [facility] BMI Calculated 34.15 12/30/2017 [facility] Height 157.48 cm 12/30/2017 [facility] Weight 84.682 12/30/2017 [facility] Systolic (mm Hg) 115 12/30/2017 [facility] Diastolic (mm Hg) 73 12/30/2017 [facility] Heart Rate 77 12/30/2017 [facility] Temperature Oral (F) 98.1 F 12/30/2017 [facility] Respitory Rate 18 12/30/2017 [facility] Respitory Rate 20 10/11/2017 [facility] Heart [...] [facility] Systolic (mm Hg) 120 08/06/2016 [facility] Diastolic (mm Hg) 81 08/06/2016 [...] [facility] Diastolic (mm Hg) 59.0 01/25/2011 [facility] Temperature Oral (F) 97.9 F 01/25/2011 [facility] [...] 01/25/2011 [facility] Weight 66.818 01/25/2011 [facility] Encounters Location Location Details Encounter Type Encounter Number Reason For Visit Attending Provider ADM Date DC Date Status Source [facility] [id number] BENY CORCORANOBODA 01/24/2011 01/24/2011 Active [facility] [id number] CARMELA HERNANDEZ 02/24/2011 02/24/2011 Active [facility] OU [id number] UPPER ABDOMINAL PAIN. MARCELINO FREY 04/23/2011 04/23/2011 Active [facility] OU [id number] MESFIN JAMISON 06/04/2011 06/04/2011 Active [facility] Emergency [id number] Suman Cortes 08/06/2016 08/06/2016 [facility] Emergency [id number] Roslyn Laura 10/11/2017 10/11/2017 [facility] [id number] Duy Minaya 12/30/2017 12/30/2017 [facility] Procedures Procedure Code Date Perfomer Comments Source
--- OUTSIDE RECORDS SUMMARY | 2018-08-04 05:31 | XMS REPORT | Summary of Care ---
Author Author [facility] Organization [facility] Address Unknown Phone Unavailable Encounter [facility] [place]) [phone] Date(s): 12/30/17 - 12/30/17 [facility] [address] [place] [address]- Encounter Diagnosis Threatened miscarriage (Discharge Diagnosis) - 12/30/17 Threatened (Final) - 01/02/18 Less than 8 weeks gestation of (Final) - Discharge Disposition: Home or Self Care Attending Physician: Duy Minaya MD Vital Signs Most recent to 1 2 oldest [Reference Range]: Height 157.48 cm (12/30/17 10:36 AM) Temperature Oral 98 DegF 98.1 DegF [96.4-99.1 DegF] (12/30/17 1:15 PM) (12/30/17 10:36 AM) Blood Pressure 117/68 mmHg 115/73 mmHg [90-140/60-90 mmHg] (12/30/17 1:15 PM) (12/30/17 10:36 AM) Respiratory Rate 20 BRMIN 18 BRMIN [14-20 BRMIN] (12/30/17 1:15 PM) (12/30/17 10:36 AM) Peripheral Pulse 72 bpm 77 bpm Rate [60-100 bpm] (12/30/17 1:15 PM) (12/30/17 10:36 AM) Weight 84.682 kg (12/30/17 10:36 AM) Body Mass Index 34.15 m2 (12/30/17 10:36 AM) Problem List No data available for this section Allergies, Adverse Reactions, Alerts Substance Reaction Severity Status NKDA Active Medications acetaminophen 975 mg, Route: PO, Drug form: TAB, ONCE, Dosing Weight 84.682, kg, Priority: STA T, Start date: 12/30/17 11:22:00 CDT, Stop date: 12/30/17 11:22:00 CDT Start Date: 12/30/17 Stop Date: 12/30/17 Status: Completed Saline Flush 0.9% 10 mL, Route: IVP, Drug Form: INJ, Dosing Weight 84.682, kg, PRN, PRN Line Flush , Start date: 12/30/17 10:42:00 CDT, Duration: 30 day, Stop date: 01/29/18 10:41 :00 CDT Notes: Same as: BD Posiflush Sterile Start Date: 12/30/17 Stop Date: 12/30/17 Status: Discontinued Sodium Chloride 0.9% (Bolus) IV 1,000 mL, Infuse Over: 1 hr, Route: IV, ONCE, Priority: STAT, Dosing Weight 84.6 82 kg, Start date: 12/30/17 11:03:00 CDT, Stop date: 12/30/17 11:03:00 CDT Start Date: 12/30/17 Stop Date: 12/30/17 Status: Completed Results BLOOD BANK RESULTS Most recent to 1 oldest [Reference Range]: ABO/Rh A POS *Unknown* (12/30/17 10:58 AM) ELECTROLYTES Most recent to 1 oldest [Reference Range]: Sodium Lvl [135-145 140 mEq/L mEq/L] (12/30/17 10:58 AM) Potassium Lvl 3.9 mEq/L [3.5-5.1 mEq/L] (12/30/17 10:58 AM) Chloride Lvl [95-109 106 mEq/L mEq/L] (12/30/17 10:58 AM) CO2 [24-32 mEq/L] 27 mEq/L (12/30/17 10:58 AM) AGAP [10.0-20.0 10.9 mEq/L mEq/L] (12/30/17 10:58 AM) CHEM PANEL Most recent to 1 oldest [Reference Range]: Creatinine Lvl 0.66 mg/dL [0.50-1.40 mg/dL] (12/30/17 10:58 AM) eGFR 122 mL/min/1.73m2 1 *NA* (12/30/17 10:58 AM) BUN [7-22 mg/dL] 8 mg/dL (12/30/17 10:58 AM) Glucose Lvl [70-99 94 mg/dL mg/dL] (12/30/17 10:58 AM) Total Protein 7.7 g/dL [6.4-8.4 g/dL] (12/30/17 10:58 AM) Albumin Lvl [3.5-5.0 3.5 g/dL g/dL] (12/30/17 10:58 AM) Globulin [2.7-4.2 4.2 g/dL g/dL] (12/30/17 10:58 AM) A/G Ratio [0.7-1.6] 0.8 (12/30/17 10:58 AM) Calcium Lvl 8.6 mg/dL [8.5-10.5 mg/dL] (12/30/17 10:58 AM) ALT [0-65 unit/L] 32 unit/L (12/30/17 10:58 AM) AST [0-37 unit/L] 19 unit/L (12/30/17 10:58 AM) Alk Phos [39-136 68 unit/L unit/L] (12/30/17 10:58 AM) Bili Total [0.2-1.3 0.3 mg/dL mg/dL] (12/30/17 10:58 AM) Bili Direct [0.0-0.3 <0.1 mg/dL mg/dL] (12/30/17 10:58 AM) Bili Indirect Unable to Calculate [0.0-1.0] *NA* (12/30/17 10:58 AM) 1Result Comment: The eGFR is calculated using [...] Most recent to 1 oldest [Reference Range]: [place] [address] mIU/mL *NA* (12/30/17 10:58 AM) URINE AND STOOL Most recent to 1 oldest [Reference Range]: UA Turbidity [Clear] Clear (12/30/17 10:58 AM) UA Color [Yellow] Light Yellow *NA* (12/30/17 10:58 AM) UA pH [5.0-8.0] 7.0 (12/30/17 10:58 AM) UA Spec Grav 1.013 [<=1.030] (12/30/17 10:58 AM) UA Glucose [Negative Negative mg/dL mg/dL] *NA* (12/30/17 10:58 AM) UA Blood [Negative] Negative (12/30/17 10:58 AM) UA Ketones Negative *NA* (12/30/17 10:58 AM) UA Protein [Negative Negative mg/dL mg/dL] (12/30/17 10:58 AM) UA Urobilinogen <=1.0 mg/dL [0.1-1.0 mg/dL] *NA* (12/30/17 10:58 AM) UA Bili [Negative] Negative *NA* (12/30/17 10:58 AM) UA Leuk Est Negative [Negative] (12/30/17 10:58 AM) UA Nitrite Negative [Negative] (12/30/17 10:58 AM) UA WBC [0-5 /HPF] 1 /HPF (12/30/17 10:58 AM) UA RBC [0-2 /HPF] <1 /HPF (12/30/17 10:58 AM) UA Bacteria [None Occasional /HPF Seen /HPF] *NA* (12/30/17 10:58 AM) UA Sq Epi [Few /LPF] Occasional /LPF *NA* (12/30/17 10:58 AM) UA Mucus [None Seen Few /LPF /LPF] *NA* (12/30/17 10:58 AM) HEMATOLOGY Most recent to 1 oldest [Reference Range]: WBC [3.7-10.4 K/CMM] 5.2 K/CMM (12/30/17 10:58 AM) RBC [4.20-5.40 4.56 M/CMM M/CMM] (12/30/17 10:58 AM) Hgb [12.0-16.0 g/dL] 14.0 g/dL (12/30/17 10:58 AM) Hct [36.0-48.0 %] 41.0 % (12/30/17 10:58 AM) MCV [80.0-98.0 fL] 89.9 fL (12/30/17 10:58 AM) MCH [27.0-31.0 pg] 30.7 pg (12/30/17 10:58 AM) MCHC [32.0-36.0 34.1 g/dL g/dL] (12/30/17 10:58 AM) RDW [11.5-14.5 %] 13.5 % (12/30/17 10:58 AM) MPV [7.4-10.4 fL] 7.9 fL (12/30/17 10:58 AM) Platelet [133-450 235 K/CMM K/CMM] (12/30/17 10:58 AM) Segs [45.0-75.0 %] 57.8 % (12/30/17 10:58 AM) Lymphocytes 33.0 % [20.0-40.0 %] (12/30/17 10:58 AM) Monocytes [2.0-12.0 7.0 % %] (12/30/17 10:58 AM) Eosinophils [0.0-4.0 1.7 % %] (12/30/17 10:58 AM) Basophils [0.0-1.0 0.5 % %] (12/30/17 10:58 AM) Neutrophils # 3.0 K/CMM [1.5-8.1 K/CMM] (12/30/17 10:58 AM) Lymphocytes # 1.7 K/CMM [1.0-5.5 K/CMM] (12/30/17 10:58 AM) Monocytes # [0.0-0.8 0.4 K/CMM K/CMM] (12/30/17 10:58 AM) Eosinophils # 0.1 K/CMM [0.0-0.5 K/CMM] (12/30/17 10:58 AM) Immunizations No data available for this section Procedures No data available for this section Social History Social History Type Response Smoking Status Never smoker; Exposure to Tobacco Smoke None; Cigarette Smoking Last 365 Days No; Reg Smoking Cessation Counseling No entered on: 12/30/17 Assessment and Plan No data available for this section
[2018-08-04 05:51] LABS: BASOPHILS # (AUTO) 0.1 (0.0-0.1); BASOPHILS % 0.5 % (0.0-1.0); EOSINOPHILS # (AUTO) 0.1 (0.0-0.4); EOSINOPHILS % 0.6 % (0.0-6.0); HEMOGLOBIN 13.9 g/dL (12.0-16.0); LYMPHOCYTES # (AUTO) 2.6 (1.0-3.2); LYMPHOCYTES % 26.6 % (18.0-39.1); MEAN CORPUSCULAR HEMOGLOBIN 29.7 pg (28-32); MEAN CORPUSCULAR HGB CONC 33.9 g/dL (31-35); MEAN CORPUSCULAR VOLUME 87.6 fL (81-99); MONOCYTES # (AUTO) 0.6 (0.2-0.8); MONOCYTES % 6.5 % (4.4-11.3); NEUTROPHILS # (AUTO) 6.3 (2.1-6.9); NEUTROPHILS % 65.6 % (38.7-80.0); PLATELET COUNT 255 x10e3/uL (140-360); RED BLOOD COUNT 4.68 x10e6/uL (3.6-5.1); RED CELL DISTRIBUTION WIDTH 12.8 % (11.7-14.4)
[2018-08-04 05:58] LABS: CLARITY,URINE CLEAR (CLEAR); COLOR,URINE YELLOW (YELLOW)
[2018-08-04 05:59] LABS: BILIRUBIN,URINE NEGATIVE (NEGATIVE); KETONES,URINE NEGATIVE (NEGATIVE); LEUKOCYTE ESTERASE ,URINE NEGATIVE (NEGATIVE); NITRITE,URINE NEGATIVE (NEGATIVE); PREGNANCY TEST, URINE NEGATIVE (NEGATIVE); PROTEIN,URINE DIPSTICK NEGATIVE (NEGATIVE); URINE UROBILINOGEN 0.2 mg/dL (0.2 - 1)
[2018-08-04] MEDS ORDERED: NO HOME MEDS (06:16)
[2018-08-04 06:23] LABS: BACTERIA,URINE RARE /HPF; TRANSITIONAL EPI CELLS,URINE FEW; WBC,URINE (MAN) 0-5 /HPF (0-5)
[2018-08-04 07:08] LABS: ALANINE AMINOTRANSFERASE 31 IU/L (0-55); ALBUMIN 3.7 g/dL (3.5-5.0); ALBUMIN/GLOBULIN RATIO 0.9 (0.8-2.0); ALKALINE PHOSPHATASE 78 IU/L (40-150); AMYLASE 83 U/L (25-125); ANION GAP 11.9 mmol/L (8-16); BLOOD UREA NITROGEN 9 mg/dL (7-26); BUN/CREATININE RATIO 11 (6-25); CALCIUM 9.3 mg/dL (8.4-10.2); CARBON DIOXIDE 23 mmol/L (22-29); CHLORIDE 106 mmol/L (98-107); EST GLOMERULAR FILTRATION RATE > 60 ML/MIN (60-); GLUCOSE 103 mg/dL (74-118); LIPASE 32 U/L (8-78); POTASSIUM 3.9 mmol/L (3.5-5.1); SODIUM 137 mmol/L (136-145)
== END 2018-08-04 06:51 | disposition home or self-care (01) ==
LOC: ER 05:28
DX: R10.11 Right upper quadrant pain (principal); K80.70 Calculus of gallbladder and bile duct without cholecystitis without obstruction
CPT/HCPCS: 36415; 80053; 81001; 81025; 82150; 83690; 85025; 99283